=== PATIENT | male | born 1980 | race Caucasian/White ===

== ENCOUNTER 2017-08-07 16:48 | Emergency (ER) | payer MEDICARE, OTHER ==
[~2017-08-07] VITALS: Ht 177.8 cm; Wt 128.5 kg
[~2017-08-07 16:48] MED LIST: /QUET10TA OR; CELE10TA OR; CELE20TA OR; CELE50CA OR; DEPA500T2 OR; GEOD40CA OR; GEOD60CA OR; LUNE2TAB OR; MAXA5TAB OR; MINI5CAP OR; MULTIVIT; NORT10CA2 OR; NORT50CA OR; PRIMAQUINE; TRAM50TA2 OR; [UNRECOGNIZED DRUG - OTHER]
[2017-08-07] MEDS ORDERED: LISI-538 (16:59)
[2017-08-07] MEDS ORDERED: ALBUTEROL SULFATE 2.5 MG/0.5 ML INH NEB SOLN NEB ONE (19:15)
[2017-08-07] MEDS ORDERED: predniSONE 20 MG TAB PO ONE (19:15)
[2017-08-07] MEDS ORDERED: DOXYCYCLINE HYCLATE 100 MG TAB PO ONE (19:15)
[2017-08-07] MEDS ORDERED: IPRATROPIUM 0.5MG/ALBUTEROL 2.5MG INH SOL UD 3ML (DUONEB)(J7620) NEB ONE (19:15)
[2017-08-07] MEDS ORDERED: ALBUTEROL 90 MCG/ACT 8GM HFA INHALER INH ONE (19:45)
[2017-08-07] MEDS ORDERED: DOXY100C37 PO (20:32)
[2017-08-07] MEDS ORDERED: ALBU17IN INH (20:32)
[2017-08-07 20:45] VITALS: BP 121/71
--- NOTE | 2017-08-08 07:24 | REP ---
PA and lateral chest: Comparisons are the PA and lateral chest dated 04/20/2016, CT abdomen pelvis dated 03/23/2016 and PA and lateral chest of 08/2007. 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 This has significantly decreased in size on the study today. The focal zone of atelectasis in the right upper lobe on 04/20/2016 has resolved. There is a focal zone of increased radiodensity adjacent to the cardiac apex, possibly artifact from rib superimposition. Additionally there is mildly diffuse increased radiodensity throughout the right lung. This could be an imaging artifact or could represent developing right lung infiltrate. There are no pleural effusions. Cardiac size is normal. Gabriella, mediastinum, bony thorax are unremarkable. Impression: Questionable focal increased density just to the cardiac apex versus artifact from rib overlap. Mildly increased density throughout the entire right lung, imaging artifact versus developing infiltrate. The Morgagni hernia to the right of the heart has significantly decreased in size. Signed by Mathew Elizabeth MD 08/08/2017 07:15 A
== END 2017-08-07 20:54 | disposition home or self-care (01) ==
LOC: M ED 16:48
DX: J45.901 Unspecified asthma with (acute) exacerbation (principal); J20.9 Acute bronchitis, unspecified; H66.93 Otitis media, unspecified, bilateral; E78.70 Disorder of bile acid and cholesterol metabolism, unspecified; F43.10 Post-traumatic stress disorder, unspecified; F17.210 Nicotine dependence, cigarettes, uncomplicated; Z79.899 Other long term (current) drug therapy

== ENCOUNTER 2017-12-04 16:03 | Emergency (ER) | payer MEDICARE, OTHER ==
[2017-12-04 17:27] LABS: KETONE, URINE AUTO RFX TRACE mg/dL (NEGATIVE); LEUKOCYTE ESTERASE UR AUTO RFX NEGATIVE (NEGATIVE); MUCUS, URINE RFX SMALL (NEGATIVE); NITRITE, URINE AUTO RFX NEGATIVE (NEGATIVE); RBC, URINE AUTO RFX 7 /HPF (0-3); SPECIFIC GRAVITY UR AUTO RFX 1.018 (1.002-1.035); SQUAM EPITHELIAL CELL UR AURFX 0 /HPF (0-6); WBC, URINE AUTO RFX 1 /HPF (0-3)
[2017-12-04 21:39] LABS: CHLAMYDIA DNA AMPLIFICATION NEGATIVE (NEGATIVE); GC DNA AMPLIFICATION NEGATIVE (NEGATIVE)
== END 2017-12-04 19:32 | disposition home or self-care (01) ==
LOC: M ED 16:03
DX: N50.3 Cyst of epididymis (principal); I10 Essential (primary) hypertension; F43.10 Post-traumatic stress disorder, unspecified; F17.210 Nicotine dependence, cigarettes, uncomplicated; Z79.899 Other long term (current) drug therapy
CPT/HCPCS: 76870

== ENCOUNTER → 2020-03-31 | Outpatient (CLI) | payer OTHER ==
[~2020-03-31] MED LIST changes: -/QUET10TA OR; +ALBU17IN INH; +CELE40TA PO; +CLIN2CR PV; +D 10CAP PO; +DIPH25CA32 PO; +DOXY100C37 PO; +IBUP200C25 PO; +LISI-538; +LISI-538 PO; +MELA3TAB62 PO; +OMEP-221 PO; +PRAZ2CAP PO; +SERO1TAB OR; +SULF1TAB93 PO; +ZIPR20CA13 PO
== END ==
LOC: M LABSMTC 09:34
PROVIDERS: ATTEND Anesthesiology
DX: Z03.818 Encounter for observation for suspected exposure to other biological agents ruled out (principal); Z11.59 Encounter for screening for other viral diseases

== ENCOUNTER 2020-04-03 06:17 | Day surgery (SDC) | payer OTHER ==
[~2020-04-03] VITALS: Ht 177.8 cm; Wt 135.2 kg
[~2020-04-03 06:17] MED LIST changes: +LR 1,000 ML IV ONE
[2020-04-03] MEDS ORDERED: LIDOCAINE 2% 100MG/5ML SDV (FOR ANES.) As Ordered ONE (06:57)
[2020-04-03] MEDS ORDERED: fentaNYL 100 MCG/2 ML INJECTION (J3010) As Ordered ONE (06:57)
[2020-04-03] MEDS ORDERED: MIDAZOLAM INJ 2MG/2ML VIAL (J2250 PER 1MG) As Ordered ONE (06:57)
[2020-04-03] MEDS ORDERED: ONDANSETRON 4MG/2ML VIAL As Ordered ONE (06:58)
[2020-04-03] MEDS ORDERED: propofoL 200 MG/20 ML VIAL As Ordered ONE (06:59)
[2020-04-03] MEDS ORDERED: CHLOROPROCAINE PRES. FREE 3% 20ML VIAL As Ordered ONE (07:53)
[2020-04-03] MEDS ORDERED: PHENYLephrine HCL 500 MCG/5 ML (100MCG/ML) SYRINGE (J2370) As Ordered ONE (07:56)
[2020-04-03] MEDS ORDERED: METOCLOPRAMIDE INJ 10MG/2ML VIAL (J2765 PER 1) IV PRN (08:15)
[2020-04-03] MEDS ORDERED: ONDANSETRON 4MG/2ML VIAL IV PRN (08:15)
[2020-04-03] MEDS ORDERED: PERCOCET 5MG/325MG TAB PO PRN (08:15)
[2020-04-03] MEDS ORDERED: fentaNYL 100 MCG/2 ML INJECTION (J3010) IV PRN (08:15)
[2020-04-03] MEDS ORDERED: NORCO, ANEXSIA 5/325MG TABLET (HYDROcodone/ACETAMINOPHEN) PO PRN (08:15)
[2020-04-03 09:35] VITALS: BP 142/84
== END 2020-04-03 10:22 | disposition home or self-care (01) ==
LOC: M SDC 06:17
PROVIDERS: ATTEND Surgery
DX: L05.91 Pilonidal cyst without abscess (principal); I10 Essential (primary) hypertension; E78.00 Pure hypercholesterolemia, unspecified; K21.9 Gastro-esophageal reflux disease without esophagitis; G43.909 Migraine, unspecified, not intractable, without status migrainosus; F41.9 Anxiety disorder, unspecified; F32.9 Major depressive disorder, single episode, unspecified; Z79.899 Other long term (current) drug therapy
CPT/HCPCS: 11770; 88304; J2250; J2370; J2400; J2405; J3010

== ENCOUNTER 2020-06-27 15:30 | Emergency (ER) | payer MEDICARE, OTHER ==
[~2020-06-27 15:30] MED LIST changes: -LR 1,000 ML IV ONE; +MELA3TAB30 PO; -MELA3TAB62 PO
[2020-06-27] MEDS ORDERED: KETOROLAC 30 MG/ML 1ML VIAL As Ordered ONE (16:19)
[2020-06-27] MEDS ORDERED: KETOROLAC 30 MG/ML 1ML VIAL ONE (16:20)
[2020-06-27] MEDS ORDERED: CIPROFLOXACIN 500MG TABLET ONE (16:20)
[2020-06-27] MEDS ORDERED: TAMSULOSIN 0.4 MG CAP ONE (16:20)
[2020-06-27] MEDS ORDERED: CIPROFLOXACIN 500MG TABLET As Ordered ONE (17:58)
[2020-06-27] MEDS ORDERED: TAMSULOSIN 0.4 MG CAP As Ordered ONE (17:58)
[2020-08-10 12:30] LABS: APPEARANCE, URINE MANUAL CLEAR (CLEAR); BILIRUBIN, URINE MANUAL NEGATIVE (NEGATIVE); BLOOD URINE MANUAL POSITIVE (NEGATIVE); COLOR, URINE MANUAL LT YELLOW (YELLOW); GLUCOSE, URINE (UA) MANUAL NEGATIVE (NEGATIVE); KETONE, URINE MANUAL NEGATIVE (NEGATIVE); LEUKOCYTE ESTERASE, URINE MAN NEGATIVE (NEGATIVE); NITRITE, URINE MANUAL NEGATIVE (NEGATIVE); PROTEIN, URINE MANUAL NEGATIVE (NEGATIVE); SPECIFIC GRAVITY,URINE MANUAL 1.005 (1.002-1.035); UROBILINOGEN, URINE MANUAL NORMAL (NORMAL)
[2020-08-10 12:31] LABS: BACTERIA, URINE NONE SEEN; HYALINE CAST, URINE NONE SEEN /lpf (0-1); SQUAMOUS EPITHELIAL CELL URINE SMALL AMOUNT /hpf (SMALL AMT); WBC, URINE 0-1 /hpf (0-3)
[2020-08-10 14:59] LABS: BASO % 0.2 % (0.0-1.0); EOS # 0.2 10^3/uL (0.0-0.5); EOS % 0.9 % (0.0-3.0); HEMATOCRIT 43.3 % (42.0-52.0); HEMOGLOBIN 14.5 g/dl (13.5-17.5); LYMPH % 16.6 % (24.0-44.0); MEAN CORPUSCULAR HEMOGLOBIN 30.9 pg (27.0-33.0); MEAN CORPUSCULAR HGB CONC 33.5 g/dl (32.0-36.5); MEAN CORPUSCULAR VOLUME 92.3 fl (80.0-96.0); MONO # 1.5 10^3/uL (0.0-0.8); MONO % 8.1 % (0.0-5.0); NEUTROPHILS # 13.2 10^3/uL (1.5-8.5); NEUTROPHILS % 73.6 % (36.0-66.0); PLATELET COUNT, AUTOMATED 338 10^3/uL (150-450); RED BLOOD COUNT 4.69 10^6/uL (4.30-6.10); WHITE BLOOD COUNT 17.9 10^3/uL (4.0-10.0)
[2020-09-20 11:48] LABS: ALBUMIN 3.8 GM/DL (3.2-5.2); ALT/SGPT 29 U/L (12-78); BILIRUBIN,DIRECT < 0.1 MG/DL (0.0-0.2); BILIRUBIN,TOTAL 0.4 MG/DL (0.2-1.0); BLOOD UREA NITROGEN 11 MG/DL (7-18); CARBON DIOXIDE LEVEL 29 MEQ/L (21-32); CHLORIDE LEVEL 103 MEQ/L (98-107); GLOMERULAR FILTRATION RATE > 60.0 (>60); GLUCOSE, FASTING 126 MG/DL (70-100); POTASSIUM SERUM 3.9 MEQ/L (3.5-5.1); SODIUM LEVEL 138 MEQ/L (136-145); TOTAL PROTEIN 7.6 GM/DL (6.4-8.2)
== END 2020-06-27 18:00 | disposition home or self-care (01) ==
LOC: M ED 15:30
DX: N20.1 Calculus of ureter (principal); N13.30 Unspecified hydronephrosis; R91.8 Other nonspecific abnormal finding of lung field; K42.9 Umbilical hernia without obstruction or gangrene; K76.0 Fatty (change of) liver, not elsewhere classified; K21.9 Gastro-esophageal reflux disease without esophagitis; L05.91 Pilonidal cyst without abscess; T79.A0XA Compartment syndrome, unspecified, initial encounter; F43.10 Post-traumatic stress disorder, unspecified; F17.210 Nicotine dependence, cigarettes, uncomplicated; Z79.899 Other long term (current) drug therapy
CPT/HCPCS: 74176; 80048; 80076; 81000; 83690; 85025; 87086; 96374; 99284; J1885

== ENCOUNTER → 2021-12-22 | Outpatient (CLI) | payer OTHER ==
[~2021-12-22] MED LIST changes: +BACTDSTA PO; +DOXY-443 PO; -DOXY100C37 PO; +GASTROGRAFIN SOLUTION 30ML (Q9963) As Ordered ONE; +ISOVUE-370 76% 100ML VIAL As Ordered ONE; -LISI-538; -LISI-538 PO; +LISI20TA33; +LISI20TA33 PO; -OMEP-221 PO; +OMEP40CA5 PO; -SULF1TAB93 PO
== END ==
LOC: M RAD 06:45
PROVIDERS: ATTEND Surgery
DX: K42.0 Umbilical hernia with obstruction, without gangrene (principal)
CPT/HCPCS: 74178; Q9963; Q9967

== ENCOUNTER → 2022-02-11 | Outpatient (CLI) | payer OTHER ==
[~2022-02-11] MED LIST changes: +ATOR80TA59 PO; -GASTROGRAFIN SOLUTION 30ML (Q9963) As Ordered ONE; -ISOVUE-370 76% 100ML VIAL As Ordered ONE; +VITMTA PO
== END ==
LOC: M LABSMTC 09:09
PROVIDERS: ATTEND Anesthesiology
DX: Z01.812 Encounter for preprocedural laboratory examination (principal); Z20.822 Contact with and (suspected) exposure to COVID-19

== ENCOUNTER 2022-02-16 06:52 | Day surgery (SDC) | payer OTHER ==
[~2022-02-16] VITALS: Ht 177.8 cm; Wt 153.9 kg
[~2022-02-16 06:52] MED LIST changes: +LIDOCAINE 1% MDV 20ML VIAL SQ PRN; +LR 1,000 ML IV ONE
[2022-02-16] MEDS ORDERED: propofoL 200 MG/20 ML VIAL As Ordered ONE (08:10)
[2022-02-16] MEDS ORDERED: fentaNYL 100 MCG/2 ML INJECTION As Ordered ONE (08:10)
[2022-02-16] MEDS ORDERED: MIDAZOLAM INJ 2MG/2ML VIAL (J2250 PER 1MG) As Ordered ONE (08:10)
[2022-02-16] MEDS ORDERED: LIDOCAINE 2% 100MG/5ML SDV (FOR ANES.) As Ordered ONE (08:10)
[2022-02-16] MEDS ORDERED: LR 1,000 ML IV SCH (09:40)
[2022-02-16] MEDS ORDERED: NORCO, ANEXSIA 5/325MG TABLET (HYDROcodone/ACETAMINOPHEN) PO PRN (09:40)
[2022-02-16] MEDS ORDERED: ONDANSETRON 4MG/2ML VIAL IV PRN (09:40)
[2022-02-16] MEDS ORDERED: oxyCODONE 5MG TAB PO PRN (09:40)
[2022-02-16] MEDS ORDERED: fentaNYL 100 MCG/2 ML INJECTION IV PRN (09:40)
[2022-02-16 11:55] VITALS: BP 143/79
== END 2022-02-16 12:29 | disposition home or self-care (01) ==
LOC: M SDC 06:52
PROVIDERS: ATTEND Surgery
DX: L05.91 Pilonidal cyst without abscess (principal); J44.9 Chronic obstructive pulmonary disease, unspecified; F33.9 Major depressive disorder, recurrent, unspecified; F41.9 Anxiety disorder, unspecified; Z79.899 Other long term (current) drug therapy; F17.210 Nicotine dependence, cigarettes, uncomplicated
CPT/HCPCS: 11770; 88304; J2250; J3010

== ENCOUNTER → 2022-09-23 | Outpatient (CLI) | payer OTHER ==
[~2022-09-23] MED LIST changes: -LIDOCAINE 1% MDV 20ML VIAL SQ PRN; -LR 1,000 ML IV ONE
== END ==
LOC: M PLAIMG 08:19
PROVIDERS: ATTEND Nurse Practitioner Family
DX: M54.50 Low back pain, unspecified (principal)

== ENCOUNTER 2023-01-10 21:35 | Inpatient (IN) | payer MEDICARE, OTHER ==
[~2023-01-10] VITALS: Ht 175.3 cm; Wt 157.8 kg
[~2023-01-10 21:35] MED LIST changes: +DIPH-435 PO; -DIPH25CA32 PO
[2023-01-10 22:19] LABS: BASO # 0.1 10^3/uL (0.0-0.2); BASO % 0.2 % (0.0-1.0); EOS % 0.2 % (0.0-3.0); HEMATOCRIT 43.2 % (42.0-52.0); HEMOGLOBIN 14.2 g/dl (13.5-17.5); MEAN CORPUSCULAR HEMOGLOBIN 29.8 pg (27.0-33.0); MEAN CORPUSCULAR HGB CONC 32.9 g/dl (32.0-36.5); MEAN CORPUSCULAR VOLUME 90.6 fl (80.0-96.0); MONO % 6.7 % (2.0-8.0); NEUTROPHILS # 20.8 10^3/uL (1.5-8.5); NEUTROPHILS % 84.4 % (36.0-66.0); PLATELET COUNT, AUTOMATED 444 10^3/uL (150-450); RED BLOOD COUNT 4.77 10^6/uL (4.30-6.10); WHITE BLOOD COUNT 24.7 10^3/uL (4.0-10.0)
[2023-01-10 22:37] LABS: MONO # 1.7 10^3/uL (0.0-0.8)
[2023-01-10 22:43] LABS: LIPASE 28 U/L (12-53)
[2023-01-10 22:45] LABS: ALKALINE PHOSPHATASE 90 U/L (46-116); ALT/SGPT 34 U/L (7.0-40); AST/SGOT 19 U/L (<34); BILIRUBIN,DIRECT 0.2 MG/DL (<0.4); BILIRUBIN,TOTAL 0.7 MG/DL (0.3-1.2); BLOOD UREA NITROGEN 9 MG/DL (9-23); CALCIUM LEVEL 9.8 MG/DL (8.5-10.1); CARBON DIOXIDE LEVEL 30 MMOL/L (20-31); CHLORIDE LEVEL 97 MMOL/L (98-107); CREATININE FOR GFR 0.74 MG/DL (0.70-1.30); GLOMERULAR FILTRATION RATE > 60.0 (>60); GLUCOSE, FASTING 149 MG/DL (60-100); POTASSIUM SERUM 4.6 MMOL/L (3.5-5.1); SODIUM LEVEL 134 MMOL/L (136-145); TOTAL PROTEIN 7.8 G/DL (5.7-8.2)
[2023-01-10] MEDS ORDERED: ONDANSETRON 4MG 2ML VIAL IV ONE (22:50)
[2023-01-10] MEDS ORDERED: ISOVUE-370 76% 100ML VIAL As Ordered ONE (22:52)
[2023-01-10] MEDS: MORPHINE 4 MG/ML 1ML VIAL IV PRN (22:59)
[2023-01-11] VITALS (12 sets, daily range): BP systolic 115–152; BP diastolic 65–84; O2SAT 93–95
[2023-01-11] MEDS: MORPHINE 4 MG/ML 1ML VIAL IV PRN ×3 (00:15→02:01)
[2023-01-11] MEDS ORDERED: PIPERACILLIN/TAZOBACTAM SOD 4.5 GM in D5W MINI-BAG PLUS 50 ML IV ONE (00:35)
[2023-01-11] MEDS ORDERED: NS 1,000 ML IV ONE ×3 (01:05→03:45)
[2023-01-11] MEDS ORDERED: EXCETAB32 PO (01:52)
[2023-01-11] MEDS ORDERED: IBUP-1720 PO (01:52)
[2023-01-11] MEDS ORDERED: CHEL50TA2 PO (01:52)
[2023-01-11] MEDS ORDERED: [UNRECOGNIZED DRUG - CODE] EXT (01:52)
[2023-01-11] MEDS ORDERED: DICL1GEL3 TOP (01:52)
[2023-01-11] MEDS ORDERED: OPER4LIQ EXT (01:52)
[2023-01-11] MEDS ORDERED: MULTCHW12 PO (01:52)
[2023-01-11] MEDS ORDERED: METF500T13 PO (01:52)
[2023-01-11] MEDS ORDERED: LUNE2TAB23 PO (01:52)
[2023-01-11] MEDS ORDERED: LISI20TA33 PO (01:52)
[2023-01-11] MEDS ORDERED: HOME MED LIST COMPLETE! XX SCH (01:55)
[2023-01-11] MEDS ORDERED: MOM 30ML SUSPENSION UDC PO PRN (03:20)
[2023-01-11] MEDS ORDERED: ACETAMINOPHEN TAB 650MG DOSE (2X325MG) PO PRN (03:20)
[2023-01-11] MEDS: NS 1,000 ML IV SCH ×2 (03:25→04:38)
[2023-01-11] MEDS ORDERED: HYDROmorphone HCL 2MG/ML 1ML VIAL IV PRN (03:25)
[2023-01-11] MEDS ORDERED: NICOTINE 21MG/24HR 1 EA TRANSDERMAL TD ONE (03:45)
[2023-01-11 04:40] LABS: BASO % 0.2 % (0.0-1.0); HEMATOCRIT 40.8 % (42.0-52.0); HEMOGLOBIN 13.2 g/dl (13.5-17.5); LYMPH # 0.8 10^3/uL (1.5-5.0); LYMPH % 2.8 % (24.0-44.0); MEAN CORPUSCULAR HEMOGLOBIN 29.7 pg (27.0-33.0); MEAN CORPUSCULAR HGB CONC 32.4 g/dl (32.0-36.5); MEAN CORPUSCULAR VOLUME 91.7 fl (80.0-96.0); MONO % 6.3 % (2.0-8.0); NEUTROPHILS # 23.9 10^3/uL (1.5-8.5); NEUTROPHILS % 90.1 % (36.0-66.0); PLATELET COUNT, AUTOMATED 398 10^3/uL (150-450); RED BLOOD COUNT 4.45 10^6/uL (4.30-6.10); WHITE BLOOD COUNT 26.5 10^3/uL (4.0-10.0)
[2023-01-11] MEDS ORDERED: GLUCOSE 4GM CHEW TABLET PO PRN (04:55)
[2023-01-11] MEDS ORDERED: ALBUTEROL SULFATE 2.5MG/0.5ML INH NEB SOLN NEB PRN (04:55)
[2023-01-11] MEDS ORDERED: GLUCAGON INJ 1MG VIAL SC PRN (04:55)
[2023-01-11] MEDS ORDERED: DEXTROSE 50% 50ML SYRINGE IV PRN (04:55)
[2023-01-11 04:57] LABS: MONO # 1.7 10^3/uL (0.0-0.8)
[2023-01-11 05:17] LABS: HEMOGLOBIN A1c 6.5 % (4.0-6.0)
[2023-01-11 05:18] LABS: BLOOD UREA NITROGEN 9 MG/DL (9-23); CALCIUM LEVEL 9.3 MG/DL (8.5-10.1); CARBON DIOXIDE LEVEL 27 MMOL/L (20-31); CHLORIDE LEVEL 98 MMOL/L (98-107); CREATININE FOR GFR 0.73 MG/DL (0.70-1.30); GLOMERULAR FILTRATION RATE > 60.0 (>60); GLUCOSE, FASTING 165 MG/DL (60-100); SODIUM LEVEL 135 MMOL/L (136-145)
[2023-01-11] MEDS: INSULIN LISPRO (NovoLOG) PER UNIT SC SCH ×4 (05:44→23:07)
[2023-01-11] MEDS ORDERED: ONDANSETRON 4MG 2ML VIAL IV PRN (06:00)
[2023-01-11] MEDS ORDERED: ACETAMINOPHEN 1000MG 100ML IV BAG IV ONE (06:45)
[2023-01-11] MEDS ORDERED: MORPHINE 4 MG/ML 1ML VIAL IV PRN (08:45)
[2023-01-11] MEDS: PANTOPRAZOLE 40MG VIAL IV SCH ×2 (10:03→20:21)
[2023-01-11] MEDS: PIPERACILLIN/TAZOBACTAM SOD 3.375 GM in D5W MINI-BAG PLUS 50 ML IV SCH ×3 (10:05→20:22)
[2023-01-11] MEDS ORDERED: BUPIVACAINE LIPOSOME/PF 1.3% 20ML VIAL (13.3MG/ML)(EXPAREL) As Ordered ONE (12:39)
[2023-01-11] MEDS ORDERED: BUPIVACAINE HCL 0.25% 30ML VIAL As Ordered ONE (12:39)
[2023-01-11] MEDS ORDERED: LIDOCAINE 1% SDV 30ML VIAL As Ordered ONE (12:39)
[2023-01-11] MEDS ORDERED: BUPIVACAINE HCL 0.25% 10ML VIAL As Ordered ONE (12:39)
[2023-01-11] MEDS ORDERED: fentaNYL 100 MCG/2 ML INJECTION As Ordered ONE ×2 (13:30→13:37)
[2023-01-11] MEDS ORDERED: MIDAZOLAM INJ 2MG/2ML VIAL As Ordered ONE (13:30)
[2023-01-11] MEDS ORDERED: LIDOCAINE 2% 100MG/5ML SDV (FOR ANES.) As Ordered ONE (13:30)
[2023-01-11] MEDS ORDERED: ONDANSETRON 4MG 2ML VIAL As Ordered ONE (13:30)
[2023-01-11] MEDS ORDERED: propofoL 200 MG/20 ML VIAL As Ordered ONE (13:30)
[2023-01-11] MEDS ORDERED: ROCURONIUM BROMIDE 50MG/5ML VIAL As Ordered ONE ×3 (13:30→15:35)
[2023-01-11] MEDS ORDERED: SUGAMMADEX SODIUM 500 MG/5 ML VIAL (BRIDION) As Ordered ONE (13:30)
[2023-01-11] MEDS ORDERED: ACETAMINOPHEN 1000MG 100ML IV BAG As Ordered ONE (13:44)
[2023-01-11] MEDS ORDERED: KETOROLAC 60MG 2ML VIAL As Ordered ONE (13:59)
[2023-01-11] MEDS ORDERED: HYDROmorphone HCL 2MG/ML 1ML VIAL As Ordered ONE (14:01)
[2023-01-11] MEDS ORDERED: ZOSYN 3.375GM VIAL As Ordered ONE (16:03)
[2023-01-11] MEDS: LR 1,000 ML IV SCH (18:20)
[2023-01-11] MEDS: KETOROLAC 30 MG/ML 1ML VIAL IV SCH (23:44)
[2023-01-12] MEDS: LR 1,000 ML IV SCH ×3 (02:20→18:06)
[2023-01-12] MEDS: PIPERACILLIN/TAZOBACTAM SOD 3.375 GM in D5W MINI-BAG PLUS 50 ML IV SCH ×4 (02:20→20:16)
[2023-01-12 03:55] VITALS: BP 147/74
[2023-01-12 05:21] LABS: BASO % 0.1 % (0.0-1.0); EOS % 0.3 % (0.0-3.0); HEMATOCRIT 35.7 % (42.0-52.0); HEMOGLOBIN 11.3 g/dl (13.5-17.5); LYMPH # 1.6 10^3/uL (1.5-5.0); LYMPH % 16.2 % (24.0-44.0); MEAN CORPUSCULAR HGB CONC 31.7 g/dl (32.0-36.5); MEAN CORPUSCULAR VOLUME 94.7 fl (80.0-96.0); MONO # 1.5 10^3/uL (0.0-0.8); MONO % 15.9 % (2.0-8.0); NEUTROPHILS # 6.4 10^3/uL (1.5-8.5); NEUTROPHILS % 67.1 % (36.0-66.0); PLATELET COUNT, AUTOMATED 328 10^3/uL (150-450); RED BLOOD COUNT 3.77 10^6/uL (4.30-6.10); WHITE BLOOD COUNT 9.6 10^3/uL (4.0-10.0)
[2023-01-12 05:39] LABS: BLOOD UREA NITROGEN 11 MG/DL (9-23); CALCIUM LEVEL 7.6 MG/DL (8.5-10.1); CARBON DIOXIDE LEVEL 31 MMOL/L (20-31); CHLORIDE LEVEL 104 MMOL/L (98-107); CREATININE FOR GFR 0.75 MG/DL (0.70-1.30); GLOMERULAR FILTRATION RATE > 60.0 (>60); GLUCOSE, FASTING 108 MG/DL (60-100); POTASSIUM SERUM 4.5 MMOL/L (3.5-5.1); SODIUM LEVEL 140 MMOL/L (136-145)
[2023-01-12] MEDS: INSULIN LISPRO (NovoLOG) PER UNIT SC SCH ×4 (05:42→23:45)
[2023-01-12] MEDS: KETOROLAC 30 MG/ML 1ML VIAL IV SCH ×4 (05:46→23:45)
[2023-01-12 08:00] VITALS: BP 138/71
[2023-01-12] MEDS ORDERED: ENOXAPARIN 40MG/0.4ML SYRINGE (J1650 PER 10MG) SC SCH (08:50)
[2023-01-12] MEDS: PANTOPRAZOLE 40MG VIAL IV SCH ×2 (09:28→20:16)
[2023-01-12] MEDS: ENOXAPARIN 60MG/0.6ML SYRINGE (J1650 PER 10MG) SC SCH ×2 (09:32→20:16)
[2023-01-12 12:00] VITALS: BP 132/59
[2023-01-12] MEDS: NICOTINE 21MG/24HR 1 EA TRANSDERMAL TD SCH (17:22)
[2023-01-12] MEDS: CHLORASEPTIC SPRAY MT PRN ×3 (17:22→23:48)
[2023-01-12 18:58] VITALS: BP 107/59
[2023-01-12 20:23] VITALS: BP 116/73
[2023-01-12] MEDS: zolPIDEM TARTRATE 5 MG TAB PO PRN (21:30)
[2023-01-12 23:45] VITALS: BP 143/81
[2023-01-13] MEDS: CHLORASEPTIC SPRAY MT PRN ×2 (02:25→05:21)
[2023-01-13] MEDS: PIPERACILLIN/TAZOBACTAM SOD 3.375 GM in D5W MINI-BAG PLUS 50 ML IV SCH ×4 (02:25→20:21)
[2023-01-13] MEDS: LR 1,000 ML IV SCH ×3 (02:26→18:13)
[2023-01-13 03:29] VITALS: BP 157/84
[2023-01-13] MEDS: KETOROLAC 30 MG/ML 1ML VIAL IV SCH ×4 (05:21→23:00)
[2023-01-13] MEDS: INSULIN LISPRO (NovoLOG) PER UNIT SC SCH ×3 (05:22→18:12)
[2023-01-13 05:33] LABS: BASO % 0.2 % (0.0-1.0); EOS # 0.2 10^3/uL (0.0-0.5); HEMATOCRIT 34.8 % (42.0-52.0); HEMOGLOBIN 10.8 g/dl (13.5-17.5); LYMPH # 2.1 10^3/uL (1.5-5.0); LYMPH % 19.5 % (24.0-44.0); MEAN CORPUSCULAR HEMOGLOBIN 29.5 pg (27.0-33.0); MEAN CORPUSCULAR VOLUME 95.1 fl (80.0-96.0); MONO # 1.3 10^3/uL (0.0-0.8); MONO % 12.2 % (2.0-8.0); NEUTROPHILS # 6.9 10^3/uL (1.5-8.5); NEUTROPHILS % 65.6 % (36.0-66.0); PLATELET COUNT, AUTOMATED 350 10^3/uL (150-450); RED BLOOD COUNT 3.66 10^6/uL (4.30-6.10); WHITE BLOOD COUNT 10.6 10^3/uL (4.0-10.0)
[2023-01-13 06:00] LABS: BLOOD UREA NITROGEN 10 MG/DL (9-23); CALCIUM LEVEL 7.7 MG/DL (8.5-10.1); CARBON DIOXIDE LEVEL 30 MMOL/L (20-31); CHLORIDE LEVEL 104 MMOL/L (98-107); CREATININE FOR GFR 0.69 MG/DL (0.70-1.30); GLOMERULAR FILTRATION RATE > 60.0 (>60); GLUCOSE, FASTING 89 MG/DL (60-100); SODIUM LEVEL 141 MMOL/L (136-145)
[2023-01-13] MEDS: ENOXAPARIN 60MG/0.6ML SYRINGE (J1650 PER 10MG) SC SCH (08:05)
[2023-01-13] MEDS: PANTOPRAZOLE 40MG VIAL IV SCH ×2 (08:05→20:22)
[2023-01-13] MEDS: NICOTINE 21MG/24HR 1 EA TRANSDERMAL TD SCH ×2 (08:06→20:21)
[2023-01-13 08:24] VITALS: BP 134/64
[2023-01-13] MEDS ORDERED: FUROSEMIDE 20MG/2ML VIAL IV ONE (09:10)
[2023-01-13 12:00] VITALS: BP 137/77
[2023-01-13 20:00] VITALS: BP 136/73
[2023-01-13] MEDS: zolPIDEM TARTRATE 5 MG TAB PO PRN (20:21)
[2023-01-13] MEDS ORDERED: NICOTINE 21MG/24HR 1 EA TRANSDERMAL TD ONE (20:50)
[2023-01-13] MEDS: HEPARIN SOD (PORCINE) 5000UNITS/ML 1ML VIAL/SYRINGE SQ SCH (22:00)
[2023-01-14] MEDS: LR 1,000 ML IV SCH ×2 (01:47→08:55)
[2023-01-14] MEDS: PIPERACILLIN/TAZOBACTAM SOD 3.375 GM in D5W MINI-BAG PLUS 50 ML IV SCH (02:36)
[2023-01-14 03:56] VITALS: BP 134/68
[2023-01-14 04:13] LABS: BASO % 0.3 % (0.0-1.0); EOS # 0.1 10^3/uL (0.0-0.5); EOS % 1.2 % (0.0-3.0); HEMATOCRIT 31.5 % (42.0-52.0); HEMOGLOBIN 10.3 g/dl (13.5-17.5); LYMPH # 1.8 10^3/uL (1.5-5.0); LYMPH % 15.6 % (24.0-44.0); MEAN CORPUSCULAR HEMOGLOBIN 30.3 pg (27.0-33.0); MEAN CORPUSCULAR HGB CONC 32.7 g/dl (32.0-36.5); MEAN CORPUSCULAR VOLUME 92.6 fl (80.0-96.0); MONO # 1.5 10^3/uL (0.0-0.8); MONO % 12.7 % (2.0-8.0); NEUTROPHILS % 69.8 % (36.0-66.0); PLATELET COUNT, AUTOMATED 357 10^3/uL (150-450); WHITE BLOOD COUNT 11.5 10^3/uL (4.0-10.0)
[2023-01-14 04:28] LABS: BLOOD UREA NITROGEN 6 MG/DL (9-23); CARBON DIOXIDE LEVEL 31 MMOL/L (20-31); CHLORIDE LEVEL 101 MMOL/L (98-107); CREATININE FOR GFR 0.68 MG/DL (0.70-1.30); GLOMERULAR FILTRATION RATE > 60.0 (>60); GLUCOSE, FASTING 102 MG/DL (60-100); POTASSIUM SERUM 3.8 MMOL/L (3.5-5.1); SODIUM LEVEL 138 MMOL/L (136-145)
[2023-01-14] MEDS: INSULIN LISPRO (NovoLOG) PER UNIT SC SCH ×4 (05:51→18:00)
[2023-01-14] MEDS: HEPARIN SOD (PORCINE) 5000UNITS/ML 1ML VIAL/SYRINGE SQ SCH ×3 (05:53→22:00)
[2023-01-14] MEDS: KETOROLAC 30 MG/ML 1ML VIAL IV SCH (05:53)
[2023-01-14 08:15] VITALS: BP 134/77
[2023-01-14] MEDS: PANTOPRAZOLE 40MG VIAL IV SCH ×2 (08:54→20:50)
[2023-01-14] MEDS: NORCO, ANEXSIA 5/325MG TABLET (HYDROcodone/ACETAMINOPHEN) PO PRN ×2 (16:14→20:53)
[2023-01-14 16:19] VITALS: BP 148/79
[2023-01-14 20:00] VITALS: BP 169/81
[2023-01-14] MEDS: NICOTINE 21MG/24HR 1 EA TRANSDERMAL TD SCH (20:50)
[2023-01-14 21:18] VITALS: BP 150/92
[2023-01-14] MEDS: zolPIDEM TARTRATE 5 MG TAB PO PRN (22:44)
[2023-01-14] MEDS ORDERED: MORPHINE 4 MG/ML 1ML VIAL IV ONE (22:45)
[2023-01-15 05:45] VITALS: BP 169/85
[2023-01-15 06:00] VITALS: BP 162/88
[2023-01-15] MEDS: HEPARIN SOD (PORCINE) 5000UNITS/ML 1ML VIAL/SYRINGE SQ SCH (06:20)
[2023-01-15] MEDS: NORCO, ANEXSIA 5/325MG TABLET (HYDROcodone/ACETAMINOPHEN) PO PRN (06:20)
[2023-01-15 06:38] LABS: BASO % 0.2 % (0.0-1.0); EOS # 0.3 10^3/uL (0.0-0.5); EOS % 2.1 % (0.0-3.0); HEMATOCRIT 34.4 % (42.0-52.0); HEMOGLOBIN 10.8 g/dl (13.5-17.5); LYMPH # 2.3 10^3/uL (1.5-5.0); LYMPH % 18.2 % (24.0-44.0); MEAN CORPUSCULAR HEMOGLOBIN 29.6 pg (27.0-33.0); MEAN CORPUSCULAR HGB CONC 31.4 g/dl (32.0-36.5); MEAN CORPUSCULAR VOLUME 94.2 fl (80.0-96.0); MONO # 1.2 10^3/uL (0.0-0.8); MONO % 9.4 % (2.0-8.0); NEUTROPHILS # 8.8 10^3/uL (1.5-8.5); NEUTROPHILS % 69.5 % (36.0-66.0); PLATELET COUNT, AUTOMATED 366 10^3/uL (150-450); RED BLOOD COUNT 3.65 10^6/uL (4.30-6.10); WHITE BLOOD COUNT 12.6 10^3/uL (4.0-10.0)
[2023-01-15 07:08] LABS: BLOOD UREA NITROGEN 8 MG/DL (9-23); CALCIUM LEVEL 8.2 MG/DL (8.5-10.1); CARBON DIOXIDE LEVEL 28 MMOL/L (20-31); CHLORIDE LEVEL 102 MMOL/L (98-107); CREATININE FOR GFR 0.59 MG/DL (0.70-1.30); GLOMERULAR FILTRATION RATE > 60.0 (>60); GLUCOSE, FASTING 142 MG/DL (60-100); POTASSIUM SERUM 3.8 MMOL/L (3.5-5.1); SODIUM LEVEL 139 MMOL/L (136-145)
[2023-01-15] MEDS: PANTOPRAZOLE 40MG VIAL IV SCH (08:46)
[2023-01-15 08:47] VITALS: BP 162/88
[2023-01-15] MEDS: INSULIN LISPRO (NovoLOG) PER UNIT SC SCH ×2 (08:47→12:00)
[2023-01-15] MEDS ORDERED: ZIPRASIDONE 20MG CAPSULE (GEODON) PO SCH ×2 (09:00→21:00)
[2023-01-15] MEDS ORDERED: ATORVASTATIN 20 MG TAB PO SCH (09:00)
[2023-01-15] MEDS ORDERED: PERCOCET PO (10:18)
[2023-01-15] MEDS ORDERED: COLA100C5 PO (10:18)
[2023-01-15] MEDS ORDERED: MIRA3350 PO (10:18)
[2023-01-15] MEDS ORDERED: PRAZOSIN 1 MG CAP PO SCH (21:00)
[2023-01-15] MEDS ORDERED: INSULIN LISPRO (NovoLOG) PER UNIT SC SCH (21:00)
[2023-01-15] MEDS ORDERED: PANTOPRAZOLE 40MG TAB (PROTONIX) PO SCH (21:00)
[2023-01-15] MEDS ORDERED: CitaloPRAM (CeleXA) 20 MG TAB PO SCH (21:00)
== END 2023-01-15 14:02 | disposition home or self-care (01) | DRG 354 ==
LOC: M ED 21:35 → M ED INP 01-11 01:15 → M PCU 01-11 03:10 → M MSPAV 01-14 21:15
PROVIDERS: ADMIT Internal Medicine; ATTEND Internal Medicine
PROC: 0WUF0JZ Supplement Abdominal Wall with Synthetic Substitute, Open Approach (ICD-10-PCS; principal; 2023-01-11 07:30)
PROC: B246ZZZ Ultrasonography of Right and Left Heart (ICD-10-PCS; 2023-01-14)
DX: K43.6 Other and unspecified ventral hernia with obstruction, without gangrene (principal); Z68.43 Body mass index [BMI] 50.0-59.9, adult; D62 Acute posthemorrhagic anemia; E87.20 Acidosis, unspecified; E87.1 Hypo-osmolality and hyponatremia; I10 Essential (primary) hypertension; G43.709 Chronic migraine without aura, not intractable, without status migrainosus; E66.01 Morbid (severe) obesity due to excess calories; F43.10 Post-traumatic stress disorder, unspecified; F43.23 Adjustment disorder with mixed anxiety and depressed mood; E78.5 Hyperlipidemia, unspecified; J68.8 Other respiratory conditions due to chemicals, gases, fumes and vapors; F17.220 Nicotine dependence, chewing tobacco, uncomplicated; J44.9 Chronic obstructive pulmonary disease, unspecified; R09.02 Hypoxemia; E11.65 Type 2 diabetes mellitus with hyperglycemia; K21.9 Gastro-esophageal reflux disease without esophagitis; Z79.84 Long term (current) use of oral hypoglycemic drugs; Z79.899 Other long term (current) drug therapy; Z53.31 Laparoscopic surgical procedure converted to open procedure; G47.00 Insomnia, unspecified

== ENCOUNTER → 2023-05-30 | Outpatient (CLI) | payer OTHER ==
[~2023-05-30] MED LIST changes: +CHEL50TA2 PO; +COLA100C5 PO; +DICL1GEL3 TOP; +EXCETAB32 PO; +IBUP-1720 PO; +LUNE2TAB23 PO; +METF500T13 PO; +MIRA3350 PO; +MULTCHW12 PO; +OPER4LIQ EXT; +PERCOCET PO; +[UNRECOGNIZED DRUG - CODE] EXT
== END ==
LOC: M RAD 08:21
PROVIDERS: ATTEND Surgery
DX: K44.9 Diaphragmatic hernia without obstruction or gangrene (principal); R19.05 Periumbilic swelling, mass or lump

== ENCOUNTER 2025-07-28 05:01 | Emergency (ER) | payer MEDICARE, OTHER ==
[~2025-07-28] VITALS: Ht 177.8 cm; Wt 156.1 kg
[~2025-07-28 05:01] MED LIST changes: +DICL100G10 TOP; -DICL1GEL3 TOP; +DOXY-441 PO; -DOXY-443 PO; -LUNE2TAB23 PO; +LUNE2TAB28 PO
[2025-07-28 05:05] VITALS: TEMP 98.2
[2025-07-28] MEDS: NEOSPORIN OINT 0.9 GM PKT TOP ONE (06:55)
[2025-07-28] MEDS: LIDOCAINE 1% MDV 20 ML VIAL SC ONE (06:57)
[2025-07-28] MEDS: TETANUS/DIPHTH/ACEL. PERTUSSIS 0.5 ML SYR IM.IMMUN ONE (06:57)
[2025-07-28 07:14] VITALS: BP 143/79; O2SAT 100
== END 2025-07-28 07:16 | disposition home or self-care (01) ==
LOC: M ED 05:01
DX: S91.115A Laceration without foreign body of left lesser toe(s) without damage to nail, initial encounter (principal); Y92.9 Unspecified place or not applicable; Y93.9 Activity, unspecified; Y99.9 Unspecified external cause status; W26.8XXA Contact with other sharp object(s), not elsewhere classified, initial encounter; E11.9 Type 2 diabetes mellitus without complications; E78.5 Hyperlipidemia, unspecified; Z23 Encounter for immunization; Z79.1 Long term (current) use of non-steroidal anti-inflammatories (NSAID); Z79.84 Long term (current) use of oral hypoglycemic drugs; Z79.899 Other long term (current) drug therapy